=== PATIENT | male | born 1945 | race Caucasian/White ===

== ENCOUNTER 2023-04-03 13:44 | Emergency (ER) | payer OTHER ==
[~2023-04-03] VITALS: Ht 167.6 cm; Wt 80.0 kg
[2023-04-03 13:48] VITALS: O2SAT 97
[2023-04-03] MEDS ORDERED: ONDANSETRON HCL 4MG/2ML INJ IV STA (13:59)
[2023-04-03] MEDS ORDERED: SODIUM CHLORIDE 0.9% 1,000 ML IV ONE (14:00)
[2023-04-03 14:44] LABS: BASOPHILS % 0.1 % (0.0-2.0); EOSINOPHILS % 0.2 % (0.0-5.0); HEMATOCRIT. 36.1 % (42.0-52.0); HEMOGLOBIN. 12.1 g/dL (14.0-18.0); LYMPHOCYTES % 8.7 % (20.0-50.0); MEAN CORPUSCULAR HEMOGLOBIN 30.1 pg (28.0-32.0); MEAN CORPUSCULAR HGB CONC 33.4 g/dL (31.0-37.0); MEAN PLATELET VOLUME 8.9 fl (7.4-10.4); MONOCYTES % 4.2 % (2.0-8.0); NEUTROPHILS % 86.8 % (40.0-76.0); PLATELET 143 x1000/uL (130-400); RED BLOOD CELL COUNT 4.01 mill/uL (4.7-6.1); WHITE BLOOD COUNT 12.1 x1000/uL (4.5-11.0)
[2023-04-03 15:33] LABS: CHLORIDE 112 mEq/L (98-107); INDEX HEMOLYSI 4 (1-3); INDEX ICTERIC 1 (1-4); INDEX LIPEMIC 1 (1-3); SODIUM 142 mEq/L (136-145)
[2023-04-03 15:43] LABS: ALANINE AMINOTRANSFERASE 26 IU/L (13-61); ALBUMIN 3.8 g/dL (3.4-5.0); ASPARTATE AMINOTRANSFERASE 39 IU/L (15-37); BILIRUBIN TOTAL 1.3 mg/dL (0.1-1.0); CALCIUM 8.6 mg/dL (8.5-10.1); CARBON DIOXIDE 22 mEq/L (21-32); CREATININE 0.7 mg/dL (0.6-1.3); GLUCOSE 141 mg/dL (70-105); PROTEIN TOTAL 7.8 g/dL (6.0-8.3); UREA NITROGEN BLOOD 12 mg/dL (7-21)
[2023-04-03 15:57] LABS: POTASSIUM 3.9 mEq/L (3.5-5.1)
[2023-04-03] MEDS ORDERED: MECLIZINE 25MG TABLET PO NR (16:30)
[2023-04-03 16:48] LABS: CLARITY URINE CLEAR (CLEAR); COLOR URINE YELLOW (YELLOW); GLUCOSE URINE 1+ (NEGATIVE); KETONES URINE NEGATIVE (NEGATIVE); LEUKOCYTE ESTERASE URINE NEGATIVE (NEGATIVE); NITRITE URINE NEGATIVE (NEGATIVE); OCCULT BLOOD URINE TRACE (NEGATIVE); PH URINE 6.5 (4.5-8.0); PROTEIN URINE 2+ (NEGATIVE); SPECIFIC GRAVITY URINE 1.017 (1.005-1.030); UROBILINOGEN URINE 0.2 E.U./dL (0.2-1.0)
[2023-04-03 17:15] LABS: BACTERIA URINE 1+; RBC URINE 0-2 /hpf (0-2); SQUAMOUS EPITHELIAL CELL URINE RARE /lpf (RARE/1+); WBC URINE 0-2 /hpf (0-2)
[2023-04-03 17:30] VITALS: TEMP 98.6
[2023-04-03] MEDS ORDERED: ASPIRIN 81MG TABLET PO ONE (17:30)
[2023-04-03] MEDS: NITROGLYCERIN 0.4MG TABLET SL SL PRN ×2 (17:52→21:07)
[2023-04-03 19:32] LABS: TROPONIN I HIGH SENSITIVITY 43 ng/L (<78)
[2023-04-03 22:59] VITALS: BP 158/73; PULSE 80; RESP 16
== END 2023-04-03 23:32 | disposition short-term general hospital (02) ==
LOC: ER 13:54 → EDBEDREQ 17:07 → ER 23:32
DX: R42 Dizziness and giddiness (principal); E78.00 Pure hypercholesterolemia, unspecified; Z98.890 Other specified postprocedural states
CPT/HCPCS: 99285; 70496; 96374; 71045; 96361; 87426; 80053; 81003; 83690; 85025; 84484; 36415; 70498; 70450; 93005; Q9967; J8597; J2405; J7030; C9803

== ENCOUNTER 2023-04-29 09:13 | Emergency (ER) | payer OTHER, MEDICAID ==
[~2023-04-29] VITALS: Ht 172.7 cm; Wt 70.4 kg
[2023-04-29 09:17] VITALS: O2SAT 96
[2023-04-29] MEDS ORDERED: CLOPIDOGREL 75MG TABLET PO ONE (09:30)
[2023-04-29] MEDS ORDERED: ASPIRIN 325MG EC TABLET PO ONE (09:30)
[2023-04-29 10:29] LABS: BASOPHILS % 0.4 % (0.0-2.0); EOSINOPHILS % 1.5 % (0.0-5.0); HEMATOCRIT. 36.9 % (42.0-52.0); HEMOGLOBIN. 12.6 g/dL (14.0-18.0); MEAN CORPUSCULAR HEMOGLOBIN 30.9 pg (28.0-32.0); MEAN CORPUSCULAR VOLUME 90.9 fL (80.0-94.0); MONOCYTES % 7.6 % (2.0-8.0); NEUTROPHILS % 67.5 % (40.0-76.0); PLATELET 151 x1000/uL (130-400); RED BLOOD CELL COUNT 4.06 mill/uL (4.7-6.1); RED CELL DISTRIBUTION WIDTH 13.8 % (11.6-14.6); WHITE BLOOD COUNT 7.2 x1000/uL (4.5-11.0)
[2023-04-29 10:50] LABS: INR 1.1; PROTHROMBIN TIME 11.3 sec (9.6-11.0)
[2023-04-29 11:02] LABS: CLARITY URINE CLEAR (CLEAR); COLOR URINE YELLOW (YELLOW)
[2023-04-29 11:03] LABS: PROTEIN URINE NEGATIVE (NEGATIVE); SPECIFIC GRAVITY URINE <1.005 (1.005-1.030)
[2023-04-29 11:04] LABS: GLUCOSE URINE NEGATIVE (NEGATIVE); KETONES URINE NEGATIVE (NEGATIVE); LEUKOCYTE ESTERASE URINE NEGATIVE (NEGATIVE); NITRITE URINE NEGATIVE (NEGATIVE); OCCULT BLOOD URINE TRACE (NEGATIVE); UROBILINOGEN URINE 0.2 E.U./dL (0.2-1.0)
[2023-04-29 11:13] LABS: ALANINE AMINOTRANSFERASE 34 IU/L (10-49); ALBUMIN 4.1 g/dL (3.2-4.8); ASPARTATE AMINOTRANSFERASE 24 IU/L (<34); BILIRUBIN TOTAL 1.5 mg/dL (0.1-1.0); CALCIUM 8.9 mg/dL (8.7-10.4); CARBON DIOXIDE 28 mEq/L (21-32); CHLORIDE 103 mEq/L (98-107); CREATININE 1.1 mg/dL (0.6-1.3); GLUCOSE 106 mg/dL (70-105); POTASSIUM 4.7 mEq/L (3.5-5.1); PROTEIN TOTAL 6.7 g/dL (6.0-8.3); SODIUM 136 mEq/L (136-145); TROPONIN I HIGH SENSITIVITY 4 ng/L (3.0-53); UREA NITROGEN BLOOD 28 mg/dL (9-23)
[2023-04-29 11:17] LABS: ETHANOL BLOOD < 10 mg/dL (<10)
[2023-04-29] MEDS ORDERED: IOHEXOL-350 100 ML BOTTLE ONE (11:20)
[2023-04-29 13:14] LABS: TROPONIN I HIGH SENSITIVITY 18 ng/L (3.0-53)
[2023-04-29 14:13] VITALS: BP 116/81; PULSE 76; RESP 19; TEMP 98
== END 2023-04-29 14:38 | disposition short-term general hospital (02) ==
LOC: ER 09:13
DX: I63.9 Cerebral infarction, unspecified (principal); I10 Essential (primary) hypertension; E78.00 Pure hypercholesterolemia, unspecified; Z20.822 Contact with and (suspected) exposure to COVID-19; Z86.73 Personal history of transient ischemic attack (TIA), and cerebral infarction without residual deficits; Z98.890 Other specified postprocedural states
CPT/HCPCS: 80053; 81003; 80320; 85025; 85610; 84484; 36415; 71045; 70496; 70498; 70450; 93005; 99285; 87426; Q9967; C9803; G0480